=== PATIENT | male | born 1950 | race African-American/Black ===

== ENCOUNTER → 2017-07-24 | Outpatient (CLI) | payer MEDICARE, MEDICAID ==
[~2017-07-24] MED LIST: AMLO5TAB2 PO; CHOL20007 PO; DISU250T5 PO; DIVA500T53 PO; FER325T PO; LISI-646 PO; TRAZ50TA2 PO; ZIPR40CA8 PO
[2017-07-24 11:50] LABS: Basophils # (auto) 0.1 uL; Lymphocytes # (auto) 1.9 uL; White Blood Cell 5.1 10^3/uL (4.4-10.8)
[2017-07-24 11:52] LABS: Basophils % (auto) 2.2 % (0.0-2.0); Eosinophils # (auto) 0.1 uL; Eosinophils % (auto) 1.1 % (0.0-7.0); Hematocrit 28.4 % (41.0-53.0); Hemoglobin 8.8 g/dL (13.5-17.5); Lymphocytes % (auto) 38.1 % (10.0-50.0); Mean Corpuscular Hemoglobin 23.6 pg (28.0-32.0); Mean Corpuscular Hgb Conc. 31.1 g/dL (32.0-36.0); Mean Platelet Volume 7.9 fL (6.9-10.8); Monocytes # (auto) 0.5 uL; Monocytes % (auto) 10.4 % (0.0-12.0); Neutrophils # (auto) 2.4 uL; Neutrophils % (auto) 48.2 % (37.0-80.0); Nucleated Red Blood Cells % 0.2 %; Platelet Count (auto) 302 10^3/uL (140-450)
[2017-07-24 12:02] LABS: INR 0.97 (0.9-1.15); Prothrombin Time 10.6 sec (9.37-12.3)
[2017-07-24 12:03] LABS: Red Cell Distribution Width 20.9 % (11.8-14.3)
[2017-07-24 13:00] LABS: Platelet Estimate Adequate; Stomatocytes Few
[2017-07-24 13:02] LABS: Anisocytosis Slight; Hypochromia Moderate; Microcytosis Slight
[2017-07-24 13:03] LABS: Ovalocytes FEW; Schistocytes FEW
[2017-07-24 16:05] LABS: Albumin 3.8 g/dL (3.4-5.0); BUN/Creatinine Ratio 15.3; Bilirubin, Total 0.3 mg/dL (0.2-1.0); Calcium 9.2 mg/dL (8.5-10.1); Potassium 3.9 mmol/L (3.5-5.1); Total Protein 8.2 g/dL (6.4-8.2)
== END | disposition home or self-care (01) ==
LOC: LAB 10:35
PROVIDERS: ATTEND Internal Medicine Gastroenterology
DX: I10 Essential (primary) hypertension (principal); B18.2 Chronic viral hepatitis C; C61 Malignant neoplasm of prostate
CPT/HCPCS: 36415; 80053; 80061; 84153; 84443; 85025; 85610

== ENCOUNTER → 2017-08-09 | Outpatient (CLI) | payer MEDICARE, MEDICAID | END | disposition home or self-care (01) | LOC: LAB 09:08 | DX: I10 Essential (primary) hypertension (principal) | CPT/HCPCS: 82270 ==

== ENCOUNTER 2017-08-20 13:41 | Emergency (ER) | payer MEDICARE, MEDICAID ==
[~2017-08-20] VITALS: Ht 175.3 cm; Wt 83.0 kg
[2017-08-20] MEDS ORDERED: KETOROLAC TROMETH 60MG/2ML VIAL IM ONE (14:45)
[2017-08-20 15:00] VITALS: BP 134/63
== END 2017-08-20 16:57 | disposition home or self-care (01) ==
LOC: ER 13:41
DX: S33.5XXA Sprain of ligaments of lumbar spine, initial encounter (principal); M43.17 Spondylolisthesis, lumbosacral region; I10 Essential (primary) hypertension; G89.29 Other chronic pain; X58.XXXA Exposure to other specified factors, initial encounter; Y93.89 Activity, other specified; Y99.8 Other external cause status; Y92.89 Other specified places as the place of occurrence of the external cause
CPT/HCPCS: 72100; 93005; 96372; 99284; J1885

== ENCOUNTER 2017-09-27 16:27 | Emergency (ER) | payer MEDICARE, MEDICAID ==
[~2017-09-27] VITALS: Ht 175.3 cm; Wt 83.0 kg
[2017-09-28] MEDS ORDERED: MORPHINE SULFATE 4 MG/ML SYRG IV ONE (03:45)
[2017-09-28] MEDS ORDERED: SODIUM CHLORIDE 0.9% 1,000 ML IV ONE (03:45)
[2017-09-28] MEDS ORDERED: ONDANSETRON HCL 4 MG/2 ML VIAL IV ONE (03:45)
[2017-09-28] MEDS ORDERED: amLODIPine BESYLATE 5 MG TAB PO ONE (05:15)
[2017-09-28 05:16] VITALS: BP 173/101
== END 2017-09-28 05:35 | disposition home or self-care (01) ==
LOC: ER 16:27
DX: M54.16 Radiculopathy, lumbar region (principal); G89.29 Other chronic pain
CPT/HCPCS: 72131; 93005; 96361; 96374; 96375; 99284; J2270; J2405; J7030